=== PATIENT | male | born 1995 | race Caucasian/White ===

== ENCOUNTER 2020-12-15 07:39 | Emergency (ER) | payer OTHER ==
[~2020-12-15] VITALS: Ht 177.8 cm; Wt 75.0 kg
--- NOTE | 2020-12-15 08:06 | PHYS DOC ---
Past Medical History Past Medical History: No Pertinent History Past Surgical History: No Surgical History Smoking Status: Light Tobacco Smoker Alcohol Use: Occasionally Drug Use: None General Adult EDM: Chief Complaint: LOWEREXTREMITY INJURY HPI: HPI: Patient is a 25 year old male who presents with a staple gun wound in the left thigh. Patient was working and bumped into the staple gun. The injury occurred at 7:15 am according to the patient. He rates the pain at 2/10 and describes it as "achy". The staple is 1.25 inches in length and angled downwards. Patient reports only minor increase in discomfort with weight bearing but is able to walk. Patient reports last tetanus booster > 5 years ago. Review of Systems: Review of Systems: Constitutional: Denies fever or chills Musculoskeletal: Denies back pain. Reports pain in left leg at the site of staple wound Integument: Denies rash; reports puncture wound Neurologic: Denies headache, focal weakness or sensory changes Complete systems were reviewed and found to be within normal limits, except as documented in this note. Heart Score: C/O Chest Pain: N/A Current Medications: Current Medications Medications (Trade) Dose Ordered Sig/Alexis Start Time Stop Time Status Last Admin Dose Admin Cephalexin HCl (Keflex) 500 mg 1X ONCE 12/15/20 08:00 12/15/20 08:01 UNV Neomycin/ Polymyxin/ Bacitracin (Triple Antibiotic Ointment) 1 pkt 1X ONCE 12/15/20 08:00 12/15/20 08:01 UNV Physical Exam: PE: Constitutional: Well developed, well nourished, no acute distress, non-toxic appearance HENT: Normocephalic, atraumatic Eyes: Conjunctiva normal, no discharge Neck: Normal range of motion, supple Lungs & Thorax: No respiratory distress, equal chest rise and fall Skin: Warm, dry, no erythema, puncture wound with retained staple to left l ateral thigh as below Extremities: Left lateral thigh staple wound, mild tenderness to palpation. Normal ROM in LE bilaterally. Normal posterior tibial pulses bilaterally Neurologic: Alert and oriented X 3, no focal deficits noted Psychologic: Affect normal, judgment normal EKG: EKG: [] Radiology/Procedures: Radiology/Procedures: PROCEDURE: FEMUR LEFT EXAMINATION: XR FEMUR_LEFT CLINICAL HISTORY: staple to lateral left femur, eval for bony involvement TECHNIQUE: XR FEMUR_LEFT Number of Images/Views: 4 COMPARISON: None FINDINGS/ IMPRESSION: Metallic staple in the lateral soft tissues of the mid thigh without extension to the underlying femur. No acute fracture. Joints at the left hip and knee incompletely evaluated. Electronically signed by: Gerardo Green DO (12/15/2020 8:21 AM) [id number] Course & Med Decision Making: Course & Med Decision Making Patient presented to the ED with a staple gun puncture wound in the left lateral thigh. X-Ray obtained, showed staple in the lateral soft tissues of the mid thigh without extension to the underlying femur. Patient given tetanus booster. Staple was removed in the ED. Local anesthesia was planned with lidocaine 2% with epinephrine but upon evaluation the staple was partially out. Staple was removed without any resistance and did not require local anesthetic. Patient reported no additional discomfort upon removal of the staple. Prescribed antibiotics to prevent infection. Local wound care provided. Patient stable for discharge with outpatient follow-up with PCP. Discussed findings and plan with patient, who acknowledges understanding and agreement. Nathanon Disclaimer: Jian Disclaimer: This electronic medical record was generated, in whole or in part, using a voice recognition dictation system. Additional Procedures Progress Foreign body removal- durga staple to left lateral thigh Verbal consent obtained. Time out performed. Hand hygiene utilized. Wound cleaned with ChloraPrep. Local anesthesia was planned with lidocaine 2% with epinephrine but upon evaluation the staple was partially out already. Staple was removed without requiring local anesthetic with no resistance. Patient tolerated procedure well and without difficulty. Empiric antibiotic ointment applied prior to sterile dressing. Departure Departure Impression: Primary Impression: Puncture wound of left lower leg with foreign body Qualified Codes: S81.842A - Puncture wound with foreign body, left lower leg, initial encounter Disposition: HOME / SELF CARE / HOMELESS Condition: STABLE Patient Instructions: Puncture Wound, [id number] Additional Instructions: Do not soak your wound. You may shower. Clean wound daily with soap and water. Change dressing 2 times daily. Use over the counter antibiotic ointment with each dressing change. Take [id number] ibuprofen and/or Tylenol for pain or discomfort. Take prescribed antibiotic as directed to completion. Scripts Cephalexin (CEPHALEXIN) 500 Mg Tablet 1 TAB PO QID for 7 Days, #28 TAB Prov: KOEHLER,SERJIO R DO 12/15/20 SERJIO KOEHLER DO Dec 15, 2020 08:06
[2020-12-15 08:22] VITALS: BP 136/77
--- NOTE | 2020-12-15 08:23 | RAD ---
EXAMINATION: XR FEMUR_LEFT CLINICAL HISTORY: staple to lateral left femur, eval for bony involvement TECHNIQUE: XR FEMUR_LEFT Number of Images/Views: 4 COMPARISON: None FINDINGS/ IMPRESSION: Metallic staple in the lateral soft tissues of the mid thigh without extension to the underlying femu r. No acute fracture. Joints at the left hip and knee incompletely evaluated. Electronically signed by: Gerardo Green DO (12/15/2020 8:21 AM) [id number]
[2020-12-15] MEDS ORDERED: CEPH500T PO (08:30)
[2020-12-15] MEDS ORDERED: DIPH,PERTUSS(ACELL),TET VAC/PF 0.5 ML SYRINGE. VAX IM ONE (08:30)
[2020-12-15] MEDS ORDERED: CEPHALEXIN 250 MG CAPSULE. PO ONE (08:30)
[2020-12-15] MEDS ORDERED: LIDOCAINE 2%/EPI 1:100,000 20 ML VIAL. INJ ONE (08:30)
[2020-12-15] MEDS ORDERED: NEOMY/BACITR/POLYMYXIN OINT PACKET. TP ONE (08:30)
== END 2020-12-15 08:38 | disposition home or self-care (01) ==
LOC: ER 07:39
DX: S81.842A Puncture wound with foreign body, left lower leg, initial encounter (principal); Z72.0 Tobacco use; W29.4XXA Contact with nail gun, initial encounter; Y93.89 Activity, other specified; Y92.89 Other specified places as the place of occurrence of the external cause; Y99.0 Civilian activity done for income or pay
CPT/HCPCS: 90471; 90715; 99284; J3490